=== PATIENT | male | born 1955 | race Caucasian/White ===

== ENCOUNTER 2024-07-31 16:10 | Emergency (ER) | payer OTHER ==
[2024-07-31] MEDS ORDERED: Sodium Chloride 0.9% 2.5 ML Syringe FLUSH PRN (17:32)
[2024-07-31] MEDS ORDERED: Sodium Chloride 0.9% 10 ML Syringe FLUSH PRN (17:32)
[2024-07-31] MEDS: Sodium Chloride 0.9% 1,000 ML IV STA (17:41)
[2024-07-31] MEDS: Ondansetron 4 MG/2 ML SDV IVPUSH STA (17:43)
[2024-07-31 17:51] LABS: BASOPHILS ABSOLUTE AUTO 0.04 K/uL (0.00-0.20); EOSINOPHILS ABSOLUTE AUTO 0.13 K/uL (0.00-0.45); EOSINOPHILS PERCENT AUTO 3.3 % (0.0-6.0); HEMATOCRIT 37.6 % (42.0-52.0); HEMOGLOBIN 12.9 g/dL (14.0-18.0); IMMATURE GRAN PERCENT AUTO 2.5 % (0.0-0.4); LYMPHOCYTES PERCENT AUTO 22.9 % (24.0-44.0); MEAN CORPUSCULAR HEMOGLOBIN 29.1 pg (28.0-32.0); MEAN CORPUSCULAR HGB CONC 34.3 g/dL (32.0-36.0); MEAN CORPUSCULAR VOLUME 84.9 fL (83.0-99.0); MONOCYTES PERCENT AUTO 12.7 % (0.0-8.0); NEUTROPHILS ABSOLUTE AUTO 2.26 K/uL (1.80-7.70); NEUTROPHILS PERCENT AUTO 57.6 % (41.0-71.0); PLATELET COUNT,PLT 164 K/uL (150-400); RED BLOOD CELL COUNT 4.43 M/uL (4.52-5.90); WHITE BLOOD CELL COUNT,WBC 3.93 K/uL (3.9-11.3)
[2024-07-31 18:19] LABS: ALBUMIN 3.4 g/dL (3.4-5.0); BILIRUBIN TOTAL 0.5 mg/dL (0.2-1.0); CALCIUM 8.7 mg/dL (8.5-10.1); CARBON DIOXIDE,CO2 27.2 mmol/L (21.0-32.0); CREATININE 0.8 mg/dL (0.8-1.3); EST CRCL DRUG DOSING (CG) 82.63 mL/min; POTASSIUM,K 3.4 mmol/L (3.5-5.1); PROTEIN TOTAL,TP 6.7 g/dL (6.4-8.2)
== END 2024-07-31 18:56 | disposition home or self-care (01) ==
LOC: MW.ED 16:10
DX: A08.4 Viral intestinal infection, unspecified (principal); I10 Essential (primary) hypertension; E78.00 Pure hypercholesterolemia, unspecified; Z90.49 Acquired absence of other specified parts of digestive tract; Z87.891 Personal history of nicotine dependence; Z79.899 Other long term (current) drug therapy; Z75.8 Other problems related to medical facilities and other health care
CPT/HCPCS: 36415; 80053; 83690; 83735; 85025; 87428; 96361; 96374; 99284; J2405; J7030; 99283

== ENCOUNTER 2024-08-01 14:01 | Emergency (ER) | payer OTHER ==
[2024-08-01] MEDS ORDERED: Sodium Chloride 0.9% 10 ML Syringe FLUSH PRN (15:03)
[2024-08-01] MEDS ORDERED: Sodium Chloride 0.9% 2.5 ML Syringe FLUSH PRN (15:03)
[2024-08-01] MEDS: Sodium Chloride 0.9% 1,000 ML IV STA (15:28)
[2024-08-01] MEDS: Ketorolac 30 MG/ML SDV IVPUSH STA (15:28)
[2024-08-01] MEDS: Ondansetron 4 MG/2 ML SDV IVPUSH STA (15:28)
[2024-08-01 15:52] LABS: BASOPHILS ABSOLUTE AUTO 0.04 K/uL (0.00-0.20); BASOPHILS PERCENT AUTO 0.9 % (0.0-1.0); EOSINOPHILS ABSOLUTE AUTO 0.14 K/uL (0.00-0.45); HEMATOCRIT 38.7 % (42.0-52.0); HEMOGLOBIN 13.3 g/dL (14.0-18.0); IMMATURE GRAN ABSOLUTE AUTO 0.08 K/uL (0.00-0.05); IMMATURE GRAN PERCENT AUTO 1.7 % (0.0-0.4); LYMPHOCYTES ABSOLUTE AUTO 1.18 K/uL (1.00-4.80); LYMPHOCYTES PERCENT AUTO 25.3 % (24.0-44.0); MEAN CORPUSCULAR HEMOGLOBIN 29.4 pg (28.0-32.0); MEAN CORPUSCULAR HGB CONC 34.4 g/dL (32.0-36.0); MEAN CORPUSCULAR VOLUME 85.6 fL (83.0-99.0); MEAN PLATELET VOLUME 9.4 fL (9.4-12.4); MONOCYTES ABSOLUTE AUTO 0.52 K/uL (0.00-0.80); MONOCYTES PERCENT AUTO 11.2 % (0.0-8.0); NEUTROPHILS PERCENT AUTO 57.9 % (41.0-71.0); PLATELET COUNT,PLT 167 K/uL (150-400); RED BLOOD CELL COUNT 4.52 M/uL (4.52-5.90); WHITE BLOOD CELL COUNT,WBC 4.66 K/uL (3.9-11.3)
[2024-08-01 16:22] LABS: ALBUMIN 3.5 g/dL (3.4-5.0); BILIRUBIN TOTAL 0.5 mg/dL (0.2-1.0); CALCIUM 8.6 mg/dL (8.5-10.1); CARBON DIOXIDE,CO2 23.3 mmol/L (21.0-32.0); CREATININE 0.8 mg/dL (0.8-1.3); EST CRCL DRUG DOSING (CG) 82.63 mL/min; MAGNESIUM 2.1 mg/dL (1.8-2.4); POTASSIUM,K 3.5 mmol/L (3.5-5.1); PROTEIN TOTAL,TP 6.9 g/dL (6.4-8.2)
[2024-08-01 18:15] LABS: APPEARANCE,URINE CLEAR; BILIRUBIN,URINE NEGATIVE (NEGATIVE); GLUCOSE,URINE NEGATIVE (NEGATIVE); KETONES,URINE NEGATIVE (NEGATIVE); LEUKOCYTE ESTERASE,URINE NEGATIVE (NEGATIVE); NITRITE,URINE NEGATIVE (NEGATIVE); OCCULT BLOOD,URINE NEGATIVE (NEGATIVE); PROTEIN,URINE TRACE mg/dL (NEGATIVE)
[2024-08-01 18:27] LABS: BACTERIA,URINE FEW (NEGATIVE); COLOR,URINE DARK YELLOW; EPITHELIAL CELLS,URINE FEW (NONE-FEW); MUCUS,URINE FEW (NONE-MOD); RBC,URINE 0-2 (0-2/HPF); WBC,URINE 0-3 (0-5/HPF)
[2024-08-01] MEDS: Iopamidol 755 MG/ML 500 ML Multipack Bottle IVPUSH STA (18:45)
== END 2024-08-01 19:24 | disposition home or self-care (01) ==
LOC: MW.ED 14:01
DX: A08.4 Viral intestinal infection, unspecified (principal); I10 Essential (primary) hypertension; E78.00 Pure hypercholesterolemia, unspecified; Z90.49 Acquired absence of other specified parts of digestive tract; Z79.899 Other long term (current) drug therapy; Z75.8 Other problems related to medical facilities and other health care
CPT/HCPCS: 36415; 74177; 80053; 81001; 83690; 83735; 85025; 96361; 96374; 96375; 99284; J1885; J2405; J7030; Q9967